=== PATIENT | male | born 1985 | race Caucasian/White ===

== ENCOUNTER 2020-05-30 15:53 | Inpatient (IN) | payer MEDICAID ==
[~2020-05-30] VITALS: Ht 175.3 cm; Wt 63.7 kg
--- NOTE | 2020-05-30 16:15 | NUR ---
wilma tucking machine operator at bedside for eval.
--- NOTE | 2020-05-30 16:15 | NUR ---
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 pt denies any head trauma. stable vitals. nad noted. awaiting md izquierdo.
[2020-05-30] MEDS ORDERED: TDAP [DIPH/PERTUSSIS/TET] 0.5 ML VIAL IM ONE ×2 (16:21→16:30)
[2020-05-30] MEDS ORDERED: IBUPROFEN 400 MG TABLET ONE (16:21)
[2020-05-30] MEDS ORDERED: IBUPROFEN 400 MG TABLET PO ONE (16:30)
--- NOTE | 2020-05-30 17:16 | NUR ---
PAGED DR. DESOUZA ANSWERING SERVICE.
[2020-05-30 17:53] LABS: BASOPHILS # (AUTO) 0.1 /CMM (0.0-0.2); BASOPHILS % (AUTO) 0.5 % (0.0-2.0); EOSINOPHILS % (AUTO) 0.5 % (0.0-6.0); HEMATOCRIT 44 % (39-51); LYMPHOCYTES # (AUTO) 0.6 /CMM (0.8-4.8); LYMPHOCYTES % (AUTO) 5.1 % (20.0-44.0); MEAN CORPUSCULAR HGB CONC 35 g/dl (31.0-36.0); MEAN CORPUSCULAR VOLUME 90 fL (80-96); MONOCYTES # (AUTO) 0.5 /CMM (0.1-1.30); MONOCYTES % (AUTO) 4.5 % (2.0-12.0); NEUTROPHILS # (AUTO) 9.9 /CMM (1.8-8.9); NEUTROPHILS % (AUTO) 89.4 % (43.0-81.0); PLATELET COUNT (AUTO) 253 /CMM (150-450); RED BLOOD CELL COUNT(AUTO) 4.81 MIL/uL (4.5-6.0); WHITE BLOOD COUNT (AUTO) 11.1 K/uL (4.3-11.0)
[2020-05-30] MEDS ORDERED: CEFAZOLIN 1 GM in IV D5W 50 ML IV ONE (18:00)
[2020-05-30 18:03] LABS: CALCIUM, SERUM 9.8 mg/dL (8.5-10.1); CREATININE 1.2 mg/dL (0.6-1.3); POTASSIUM 4.1 mmol/L (3.5-5.1)
--- NOTE | 2020-05-30 18:31 | NUR ---
PANEL BAND TACKER PAGED
[2020-05-30] MEDS ORDERED: HYDROCODONE/APAP 5/325MG TABLET PO PRN (19:00)
[2020-05-30] MEDS ORDERED: MAGNESIUM HYDROXIDE 30 ML UDC PO PRN (19:00)
[2020-05-30] MEDS ORDERED: MORPHINE SULFATE INJ 2 MG/ML DISP.SYRIN IV PRN (19:00)
[2020-05-30] MEDS ORDERED: ONDANSETRON HCL/PF 4 MG/2 ML VIAL IVP PRN (19:00)
[2020-05-30] MEDS ORDERED: MAG HYDROX/AL HYDROX/SIMETH 30 ML UDC PO PRN (19:00)
[2020-05-30] MEDS ORDERED: ZOLPIDEM TARTRATE 5 MG TABLET PO PRN (19:00)
[2020-05-30] MEDS ORDERED: Z GUARD REMEDY 2 OZ OINT TP PRN (19:00)
[2020-05-30] MEDS ORDERED: ACETAMINOPHEN 325 MG TABLET PO PRN (19:00)
--- NOTE | 2020-05-30 19:40 | NUR ---
PT AAOX4, RESPIRATIONS EVEN AND UNLABORED W/ NAD NOTED. PT CONNECTED TO THE MONITOR AND POX. PT HAS NO MEDICAL COMPLAINTS AT THIS TIME
--- NOTE | 2020-05-30 20:10 | NUR ---
REC'D NEG COVID RESULTS. AWARE
[2020-05-30] MEDS: IV D5/0.45 NACL 1,000 ML IV PRN (21:03)
--- NOTE | 2020-05-30 21:37 | NUR ---
EMT AT BEDSIDE FOR SPLINT PLACEMENT
--- NOTE | 2020-05-30 21:42 | NUR ---
PT REPOSITIONED FOR COMFORT. NAD NOTED AT THIS TIME. WILL CONTINUE TO MONITOR PT.
--- NOTE | 2020-05-30 22:24 | NUR ---
M/S 314-2
--- NOTE | 2020-05-30 22:27 | NUR ---
REPORT CALLED TO M/S [facility]. WILL TRANSPORT PT TO ROOM 314-2.
[2020-05-31] VITALS: BP 95/66
--- NOTE | 2020-05-31 | NUR ---
ADMISSION NOTE PT ADMITTED FOR RIGHT PATELLAR FX UNDER DR. BLACK NEW ORDERS RECIEVED. WHILE IN ER ORTHO CONSULT CALLED TO DR. ESTRADA. PT CURRENTLY NPO. REPORTS THAT HE HURT HIS RIGHT KNEE BY SKATEBOARDING INTO A WALL. PT HAS RIGHT SPLINT TO RLE. PT REPORTS HAVING SENSATION IN RIGHT TOES AND REPORTS GOOD SENSATION. ORIENTED TO RM VERBALIZED UNDERSTANDING TO CALL FOR ASSISTANCE PRN. BED DOWN LOCKED SR X2 WILL CONT TO MONITOR.
[2020-05-31] MEDS ORDERED: CEFAZOLIN 1 GM ONE (05:11)
[2020-05-31] MEDS: CEFAZOLIN 1 GM in IV D5W 50 ML IV SCH ×3 (05:14→21:53)
[2020-05-31] MEDS: IV D5/0.45 NACL 1,000 ML IV PRN (05:38)
[2020-05-31] MEDS: PANTOPRAZOLE 40 MG TABLET.DR PO SCH (07:30)
[2020-05-31 07:52] LABS: BASOPHILS % (AUTO) 0.8 % (0.0-2.0); EOSINOPHILS % (AUTO) 2.9 % (0.0-6.0); HEMATOCRIT 37 % (39-51); HEMOGLOBIN 12.7 g/dL (13.5-17.5); LYMPHOCYTES % (AUTO) 17.7 % (20.0-44.0); MEAN CORPUSCULAR HGB CONC 34 g/dl (31.0-36.0); MEAN CORPUSCULAR VOLUME 90 fL (80-96); MONOCYTES # (AUTO) 0.6 /CMM (0.1-1.30); NEUTROPHILS # (AUTO) 3.9 /CMM (1.8-8.9); NEUTROPHILS % (AUTO) 67.6 % (43.0-81.0); PLATELET COUNT (AUTO) 214 /CMM (150-450); WHITE BLOOD COUNT (AUTO) 5.8 K/uL (4.3-11.0)
[2020-05-31 08:00] VITALS: BP 94/53
[2020-05-31 08:18] LABS: CALCIUM, SERUM 8.4 mg/dL (8.5-10.1); MAGNESIUM 2.1 mg/dL (1.8-2.4); PHOSPHORUS 4.4 mg/dL (2.5-4.9); POTASSIUM 3.5 mmol/L (3.5-5.1)
[2020-05-31 08:29] LABS: THYROID STIMULATING HORMONE 2.429 uIU/mL (0.358-3.74)
--- NOTE | 2020-05-31 14:00 | NUR ---
RN MS NOTES PT PICKED UP FOR SURGERY BY O.R. STAFF, IN STABLE CONDITION.
[2020-05-31] MEDS ORDERED: BUPIVACAINE 0.5 % PF 150 MG/30 ML VIAL ONE (14:10)
[2020-05-31] MEDS ORDERED: VANCOMYCIN 1 GM VIAL ONE (14:10)
[2020-05-31] MEDS ORDERED: BACITRACIN 50000 UNITS/VIAL ONE (14:10)
[2020-05-31] MEDS ORDERED: SEVOFLURANE 250 ML BOTTLE IH ONE (14:25)
[2020-05-31] MEDS ORDERED: FENTANYL PF 100MCG/2ML AMPUL ONE (14:25)
[2020-05-31] MEDS ORDERED: DESFLURANE 240 ML BOTTLE IH ONE (14:25)
[2020-05-31 17:34] VITALS: BP 92/58
--- NOTE | 2020-05-31 17:34 | NUR ---
RN MS NOTES RECEIVED PT FROM O.R. STAFF VIA BED, PT IS AWAKE, ALERT AND ORIENTED, NO COMPLAINT AT THIS TIME, POST OP ORDERS RECEIVED FROM MD, NOTED AND CARRIED OUT, CALL LIGHT WITHIN REACH.
--- NOTE | 2020-05-31 19:40 | NUR ---
MS RN OPENING NOTE: PT. IN BED RESTING. NO DISTRESS OR SOB NOTED. NO PAIN. CALL LIGHT WITHIN REACH.. BED IN LOW AND LOCKED POSITION. WILL CONTINUE TO MONITOR
[2020-05-31 20:00] VITALS: BP 98/58
[2020-05-31] MEDS: IV D5/0.45 NACL W/20 MEQ KCL 1L IV PRN ×2 (21:54)
[2020-06-01] MEDS: CEFAZOLIN 1 GM in IV D5W 50 ML IV SCH ×3 (05:08→21:04)
--- NOTE | 2020-06-01 06:49 | NUR ---
RN CLOSING NOTE: PT. IN BED RESTING. ALL MED GIVEN ORDERED AND KANDY. WELL. ALL NEEDS ATTENDED. NO DISTRESS OR SOB NOTED. NO PAIN. CALL LIGHT WITHIN REACH.. BED IN LOW AND LOCKED POSITION. WILL CONTINUE TO MONITOR Addendum: 06/01/20 at 0651 by FLORINDA WELCH RN AND ENDORSE TO DAY SHIFT NURSE
--- NOTE | 2020-06-01 07:30 | NUR ---
RN MS NOTES PT IN BED, AWAKE, ALERT AND ORIENTED, WITH COMPLAINT OF PAIN TO RIGHT KNEE, RESPIRATIONS NORMAL, CALL LIGHT WITHIN REACH, IV FLUIDS INFUSING WELL, NEEDS ATTENDED, EATING BREAKFAST.
[2020-06-01] MEDS: PANTOPRAZOLE 40 MG TABLET.DR PO SCH (07:34)
[2020-06-01] MEDS: MORPHINE SULFATE INJ 2 MG/ML DISP.SYRIN IV PRN ×5 (07:45→21:05)
[2020-06-01 08:00] VITALS: BP 100/63
[2020-06-01 08:01] LABS: BASOPHILS % (AUTO) 0.4 % (0.0-2.0); EOSINOPHILS % (AUTO) 0.6 % (0.0-6.0); HEMATOCRIT 35 % (39-51); HEMOGLOBIN 12.1 g/dL (13.5-17.5); LYMPHOCYTES # (AUTO) 1.2 /CMM (0.8-4.8); LYMPHOCYTES % (AUTO) 14.9 % (20.0-44.0); MEAN CORPUSCULAR HGB CONC 35 g/dl (31.0-36.0); MEAN CORPUSCULAR VOLUME 91 fL (80-96); MONOCYTES # (AUTO) 0.7 /CMM (0.1-1.30); MONOCYTES % (AUTO) 8.7 % (2.0-12.0); NEUTROPHILS # (AUTO) 6.1 /CMM (1.8-8.9); NEUTROPHILS % (AUTO) 75.4 % (43.0-81.0); PLATELET COUNT (AUTO) 197 /CMM (150-450); RED BLOOD CELL COUNT(AUTO) 3.85 MIL/uL (4.5-6.0); WHITE BLOOD COUNT (AUTO) 8.1 K/uL (4.3-11.0)
[2020-06-01 08:17] LABS: CALCIUM, SERUM 8.5 mg/dL (8.5-10.1); CREATININE 1.1 mg/dL (0.6-1.3); MAGNESIUM 1.8 mg/dL (1.8-2.4); PHOSPHORUS 3.6 mg/dL (2.5-4.9); POTASSIUM 3.7 mmol/L (3.5-5.1)
[2020-06-01 16:00] VITALS: BP 107/65
--- NOTE | 2020-06-01 18:33 | NUR ---
MS RN NOTES PT IS AWAKE, ALERT AND ORIENTED. PT COMPLIANT WITH SCHEDULED MEDICATIONS. IV FLUIDS INFUSING WELL. PT IS CALM AND COOPERATIVE. PT REPORTS PAIN OF RIGHT KNEE. CONTINUED PAIN MANAGEMENT. PT PERFORMED ADLS AND AMBULATED WITH PHYSICAL THERAPIST. BED IS ON LOWEST POSITION, BED ALARM IS SET, AND CALL LIGHT IS WITHIN REACH.
--- NOTE | 2020-06-01 19:30 | NUR ---
MS/RN OPENING NOTES RECEIVED PATIENT RESTING IN BED. REPORT GIVEN BY DAY SHIFT NURSE FOR ZENA. PATIENT BREATHING IS EVEN AND UNLABORED NO SIGNS OF SOB OR RESPIRATORY DISTRESS NOTED. PATIENT IS IN NO DISTRESS. SAFETY MEASURES ARE IN PLACE. WILL CONTINUE TO MONITOR THROUGH OUT SHIFT.
[2020-06-01 20:00] VITALS: BP 115/65
--- NOTE | 2020-06-01 21:10 | NUR ---
MS/RN NOTES PATIENT COMPLAINING OF PAIN AT RIGHT LEG. REQUESTING PAIN MEDS. PATIENT GIVEN MORPHINE 1MG IVP. PATIENT IS STABLE, V/S WITHIN NORMAL LIMITS. WILL CONTINUE TO MONITOR.
[2020-06-01] MEDS: IV D5/0.45 NACL W/20 MEQ KCL 1L IV PRN ×2 (21:15)
[2020-06-02] MEDS: MORPHINE SULFATE INJ 2 MG/ML DISP.SYRIN IV PRN ×3 (00:34→12:44)
[2020-06-02] MEDS: CEFAZOLIN 1 GM in IV D5W 50 ML IV SCH ×2 (04:51→12:38)
--- NOTE | 2020-06-02 06:55 | NUR ---
MS/RN CLOSING NOTES PATIENT IN BED SLEEPING EASY TO AROUSE. PATIENT IS ALERT AND ORIENTED X 4. NO SIGNS OF SOB OR RESPIRATORY DISTRESS NOTED. PATIENT BREATHING IS EVEN AND UNLABORED. PATIENT IN NO SIGNS OF DISTRESS. PATIENT HAS IV ACCESS ON L AC #18G RUNNING D5 NS WITH 20 MEQ KCL @ 75 ML/HR. PATIENT HAS IMMOBILIZER IN PLACE RIGHT LEG. ALL PATIENT NEEDS HAVE BEEN MET DURING SHIFT. SAFETY MEASURES ARE IN PLACE, BED IS LOCKED AND PLACED IN THE LOW POSITION, SIDE RAILS UP X 2, CALL LIGHT WITHIN REACH. WILL ENDORSE CARE TO DAY SHIFT NURSE.
--- NOTE | 2020-06-02 07:30 | NUR ---
MS RN OPENING NOTES PATIENT IN BED RESTING, AWAKE AND VERBALLY RESPONSIVE. ALERT AND ORIENTED X 4. BREATHING IS EVEN AND UNLABORED, TOLERATING ROOM AIR. IV ACCESS ON LAC #18G INTACT AND PATENT. S/P R PATELLAR FX SURGERY W/ IMMOBILIZER IN PLACE ON RLE. SAFETY MEASURES ARE IN PLACE: BED IS LOCKED AND ON LOWEST POSITION, SIDE RAILS UP X 2, CALL LIGHT WITHIN REACH. WILL CONTINUE TO MONITOR.
[2020-06-02 08:00] VITALS: BP 118/67
[2020-06-02] MEDS: PANTOPRAZOLE 40 MG TABLET.DR PO SCH (08:45)
[2020-06-02] MEDS ORDERED: HYDR-4384 PO (11:20)
[2020-06-02] MEDS ORDERED: ONDA4TAB5 PO (11:20)
[2020-06-02 16:00] VITALS: BP 112/62
--- NOTE | 2020-06-02 19:04 | NUR ---
CATTLE KILLER NOTES PATIENT WAS SEEN BY DR. GRAY TODAY W/ ORDER FOR DISCHARGE. DISCHARGE EDUCATION AND INSTRUCTIONS GIVEN TO PATIENT, VERBALIZED UNDERSTANDING. DISCHARGE FORM AND BELONGINGS LIST SIGNED BY PATIENT. BELONGINGS ACCOUNTED FOR. INSTRUCTED TO CALL DR. ESTRADA'S OFFICE FOR F/U APPOINTMENT. IV LINE REMOVED; PATIENT DID NOT WANT ARMBAND TO BE REMOVED, WILL REMOVE AT HOME. RLE IMMOBILIZER INTACT, DRESSING DRY AND INTACT WELL. ACCOMPANIED BY CLARITA SIM, TO THE LOBBY, AND PICKED UP BY VIA PRIVATE CAR. CHARGE NURSE AND MD AWARE OF DISCHARGE.
== END 2020-06-02 19:00 | disposition home health service (06) | DRG 317 ==
LOC: ER 16:06 → OBSVTOIN 19:57 → TRANSITION 19:57 → MED 22:23
PROVIDERS: ADMIT Student in an Organized Health Care Education/Training Program; ATTEND Nurse Practitioner Acute Care
PROC: 0QSD04Z Reposition Right Patella with Internal Fixation Device, Open Approach (ICD-10-PCS; principal; 2020-05-31)
PROC: 0KQQ0ZZ Repair Right Upper Leg Muscle, Open Approach (ICD-10-PCS; 2020-05-31)
DX: S82.041B Displaced comminuted fracture of right patella, initial encounter for open fracture type I or II (principal); S76.112A Strain of left quadriceps muscle, fascia and tendon, initial encounter; D72.829 Elevated white blood cell count, unspecified; V00.131A Fall from skateboard, initial encounter; Y93.51 Activity, roller skating (inline) and skateboarding; D64.9 Anemia, unspecified; Y92.89 Other specified places as the place of occurrence of the external cause
CPT/HCPCS: 36415; 71045-TC; 73560-TC; 73564-TC; 80048-TC; 80061-TC; 83735-TC; 84100-TC; 84443-TC; 85025-TC; 85730-TC; 87081-TC; 90715; 97110-TC; 97116-TC; 97530-TC; A6403; G0378; J0690; J1030; J1885; J2270; J2405; J2704; J3010; J3370; J3480; J3490; J7060